=== PATIENT | male | born 1980 | race Caucasian/White ===

== ENCOUNTER 2020-06-19 13:10 | Emergency (ER) | payer SELFPAY ==
[~2020-06-19] VITALS: Ht 177.8 cm; Wt 77.0 kg
[2020-06-19 13:19] VITALS: BP 116/70
== END 2020-06-19 16:09 | disposition home or self-care (01) ==
LOC: ER 13:10
DX: K80.50 Calculus of bile duct without cholangitis or cholecystitis without obstruction (principal)
CPT/HCPCS: 93005; 99283

== ENCOUNTER 2021-07-01 18:28 | Emergency (ER) | payer MEDICAID | END 2021-07-01 19:35 | disposition left against medical advice (07) | LOC: ER 19:34 | DX: N48.89 Other specified disorders of penis (principal); Z53.21 Procedure and treatment not carried out due to patient leaving prior to being seen by health care provider ==

== ENCOUNTER 2021-08-18 13:13 | Emergency (ER) | payer MEDICAID ==
[~2021-08-18] VITALS: Ht 165.1 cm; Wt 89.0 kg
[2021-08-18 14:50] VITALS: BP 123/67
[2021-08-18] MEDS ORDERED: P20 MT (15:11)
[2021-08-18] MEDS ORDERED: PREDNISONE 20MG TABLET PO ONE (15:15)
== END 2021-08-18 15:40 | disposition left against medical advice (07) ==
LOC: ER 13:13
DX: R21 Rash and other nonspecific skin eruption (principal)
CPT/HCPCS: 86694; 86695; 99283; J7512

== ENCOUNTER 2024-03-09 14:36 | Emergency (ER) | payer OTHER, MEDICAID ==
[~2024-03-09] VITALS: Ht 172.7 cm; Wt 75.0 kg
[~2024-03-09 14:36] MED LIST: P20 MT
[2024-03-09 14:40] VITALS: O2SAT 100
[2024-03-09 15:23] LABS: BASOPHILS % 1.3 % (0.0-2.0); EOSINOPHILS % 14.9 % (0.0-5.0); HEMATOCRIT. 41.5 % (42.0-52.0); HEMOGLOBIN. 13.6 g/dL (14.0-18.0); LYMPHOCYTES % 29.8 % (20.0-50.0); MEAN CORPUSCULAR HEMOGLOBIN 29.7 pg (28.0-32.0); MEAN CORPUSCULAR HGB CONC 32.8 g/dL (31.0-37.0); MEAN CORPUSCULAR VOLUME 90.7 fL (80.0-94.0); MONOCYTES % 9.7 % (2.0-8.0); NEUTROPHILS % 44.3 % (40.0-76.0); PLATELET 301 x1000/uL (130-400); RED BLOOD CELL COUNT 4.58 mill/uL (4.7-6.1); RED CELL DISTRIBUTION WIDTH 13.9 % (11.6-14.6)
[2024-03-09 15:31] LABS: PROTHROMBIN TIME 11.3 sec (9.6-11.0)
[2024-03-09 15:33] LABS: CHLORIDE 107 mEq/L (98-107); POTASSIUM 3.6 mEq/L (3.5-5.1); SODIUM 140 mEq/L (136-145)
[2024-03-09 15:34] LABS: CALCIUM 8.7 mg/dL (8.7-10.4); CARBON DIOXIDE 24 mEq/L (21-32)
[2024-03-09 15:39] LABS: CREATININE 0.9 mg/dL (0.6-1.3); GLUCOSE 79 mg/dL (70-105); UREA NITROGEN BLOOD 10 mg/dL (9-23)
[2024-03-09 15:41] LABS: ALANINE AMINOTRANSFERASE 79 IU/L (10-49); ASPARTATE AMINOTRANSFERASE 100 IU/L (<34); BILIRUBIN TOTAL 0.8 mg/dL (0.1-1.0); PROTEIN TOTAL 7.5 g/dL (6.0-8.3)
[2024-03-09 15:55] LABS: TROPONIN I HIGH SENSITIVITY < 4 ng/L (3.0-53)
[2024-03-09 17:00] VITALS: TEMP 98.4
[2024-03-09 23:00] VITALS: BP 111/71; PULSE 85; RESP 17
== END 2024-03-09 23:19 | disposition home or self-care (01) ==
LOC: ER 14:36
DX: K80.20 Calculus of gallbladder without cholecystitis without obstruction (principal); E16.2 Hypoglycemia, unspecified; F17.210 Nicotine dependence, cigarettes, uncomplicated; F12.10 Cannabis abuse, uncomplicated
CPT/HCPCS: 36415; 74022; 80053; 82962; 84484; 85025; 93005; 99285